=== PATIENT | male | born 1940 | race Caucasian/White ===

== ENCOUNTER 2022-08-17 22:22 | Inpatient (IN) | payer OTHER, BC ==
[2022-08-17] MEDS ORDERED: SODIUM CHLORIDE 1,000 ML IV ONE (22:37)
[2022-08-17 22:47] VITALS: BMI 34.3
[2022-08-17 23:24] LABS: HEMATOCRIT 42.2 % (35.4-49); MCH 22.5 pg (25.7-33.7); MCHC 33.2 g/dl (32.0-35.9); MEAN CELL VOLUME 67.9 fl (80-96); PLATELET COUNT 151.8 10^3/uL (134-434); RBC 6.22 10^6/uL (4.00-5.60); RDW 18.2 % (11.9-15.9); WHITE BLOOD COUNT 15.6 10^3/uL (4.0-10.8)
[2022-08-17 23:28] LABS: INR 1.26 (0.83-1.09); PROTHROMBIN TIME (PATIENT) 14.5 SEC (9.7-13.0)
[2022-08-17 23:35] LABS: ALBUMIN 3.5 g/dl (3.4-5.0); BILIRUBIN,TOTAL 5.9 mg/dl (0.2-1); CREATININE 1.2 mg/dl (0.55-1.3); TOT PROT 6.2 g/dl (6.4-8.2)
[2022-08-17] MEDS ORDERED: ACETAMINOPHEN 1000 MG/100 ML BAG IVPB ONE (23:38)
[2022-08-17] MEDS ORDERED: ACETAMINOPHEN INJECTION 100 ML IVPB ONE (23:46)
[2022-08-17 23:50] LABS: ANISOCYTOSIS 1+; PLATELET ESTIMATE ADEQUATE
[2022-08-18 00:32] LABS: VENOUS O2 SATURATION 94.6 % (70-80); VENOUS PCO2 30.9 mmHg (38-52); VENOUS PH 7.448 (7.310-7.410)
[2022-08-18] MEDS ORDERED: PIPERACILLIN/TAZOB 4.5 GM 4.5 GM in DEXTROSE 5%-WATER 100 ML IVPB ONE (01:34)
[2022-08-18] MEDS ORDERED: PIPERACILLIN/TAZOBACTAM 4.5 GM VIAL IVPB ONE (01:43)
[2022-08-18] MEDS ORDERED: DEXTROSE 5%-NORMAL SALINE 1,000 ML IV SCH ×2 (04:45→08:43)
[2022-08-18] MEDS ORDERED: ACETAMINOPHEN 1000 MG/100 ML BAG IVPB ONE (05:56)
[2022-08-18] MEDS ORDERED: PHYTONADIONE 10 MG/1 ML AMP IVPB ONE (07:58)
[2022-08-18 08:31] LABS: BASO % 0.2 % (0-2.0); HEMATOCRIT 38.6 % (35.4-49); HEMOGLOBIN 11.7 GM/dL (11.7-16.9); LYMPH % 6.4 % (8-40); MCH 20.6 pg (25.7-33.7); MCHC 30.3 g/dl (32.0-35.9); MEAN PLT VOLUME 9.3 fl (7.5-11.1); MONO % 3.6 % (3.8-10.2); NEUT % 89.8 % (42.8-82.8); PLATELET COUNT 145 10^3/uL (134-434); RBC 5.69 M/mm3 (4.00-5.60); RDW 16.1 % (11.9-15.9)
[2022-08-18 08:48] LABS: ALBUMIN 2.7 g/dl (3.4-5.0); BLOOD UREA NITROGEN 23.8 mg/dL (7-18); MAGNESIUM 1.3 mg/dL (1.8-2.4)
[2022-08-18 08:51] LABS: CREATININE 1.5 mg/dL (0.55-1.3); PHOSPHOROUS 3.5 mg/dL (2.5-4.9)
[2022-08-18 08:53] LABS: BILIRUBIN,TOTAL 4.6 mg/dL (0.2-1); TOT PROT 5.1 g/dl (6.4-8.2)
[2022-08-18 10:02] LABS: ANISOCYTOSIS 1+; MACROCYTOSIS 0; OVALOCYTE 1+
[2022-08-18] MEDS: PIPERACILLIN/TAZOB 3.375 GM 3.375 GM in DEXTROSE 5%-WATER - 50 ML IVPB SCH ×3 (10:20→20:33)
[2022-08-18] MEDS: INSULIN SLIDING SCALE (NOVOLOG) 1 VIAL SQ SCH ×3 (11:45→21:31)
[2022-08-18 13:20] LABS: CHLORIDE 108 mmol/L (98-107); SODIUM 139 mmol/L (136-145)
[2022-08-18 13:25] LABS: CALCIUM 8.2 mg/dL (8.5-10.1); MAGNESIUM 1.5 mg/dL (1.8-2.4)
[2022-08-18 13:27] LABS: ALBUMIN 2.6 g/dl (3.4-5.0); ANION GAP 10 MMOL/L (8-16); BLOOD UREA NITROGEN 24.2 mg/dL (7-18); CO2 21 mmol/L (21-32); GLUCOSE,RANDOM 216 mg/dL (74-106); LIPASE 116 U/L (73-393)
[2022-08-18 13:29] LABS: CREATININE 1.5 mg/dL (0.55-1.3); PHOSPHOROUS 2.6 mg/dL (2.5-4.9); SGOT/AST 54 U/L (15-37); SGPT/ALT 100 U/L (13-61); TOT PROT 5.5 g/dl (6.4-8.2)
[2022-08-18 13:31] LABS: BILIRUBIN,TOTAL 3.9 mg/dL (0.2-1)
[2022-08-18 13:33] LABS: ALK PHOS 87 U/L (45-117)
[2022-08-18] MEDS ORDERED: IOHEXOL 300 MG/ML INFUS..BTL IV ONE ×2 (14:09)
[2022-08-18] MEDS: DEXTROSE 5%-LACTATED RINGERS 1,000 ML IV SCH (16:07)
[2022-08-18] MEDS: URSODIOL 300 MG CAPSULE PO SCH (21:31)
[2022-08-19] MEDS: PIPERACILLIN/TAZOB 3.375 GM 3.375 GM in DEXTROSE 5%-WATER - 50 ML IVPB SCH ×6 (01:06→18:53)
[2022-08-19] MEDS: INSULIN SLIDING SCALE (NOVOLOG) 1 VIAL SQ SCH ×4 (06:19→22:16)
[2022-08-19] MEDS: DEXTROSE 5%-LACTATED RINGERS 1,000 ML IV SCH ×2 (06:34→18:53)
[2022-08-19] MEDS: URSODIOL 300 MG CAPSULE PO SCH ×2 (09:11→22:10)
[2022-08-19 10:30] LABS: BASO % 0.1 % (0-2.0); HEMATOCRIT 36.1 % (35.4-49); HEMOGLOBIN 11.3 GM/dL (11.7-16.9); LYMPH % 8.3 % (8-40); MCH 21.2 pg (25.7-33.7); MCHC 31.4 g/dl (32.0-35.9); MEAN CELL VOLUME 67.5 fl (80-96); MONO % 4.6 % (3.8-10.2); PLATELET COUNT 137 10^3/uL (134-434); RBC 5.34 M/mm3 (4.00-5.60); RDW 16.5 % (11.9-15.9); WHITE BLOOD COUNT 9.1 K/mm3 (4.0-10.0)
[2022-08-19 10:39] LABS: INR 1.1 (0.83-1.09); PROTHROMBIN TIME (PATIENT) 12.7 SEC (9.7-13.0)
[2022-08-19 10:55] LABS: ALBUMIN 2.7 g/dl (3.4-5.0); CALCIUM 8.7 mg/dL (8.5-10.1)
[2022-08-19 10:56] LABS: ALBUMIN 2.7 g/dl (3.4-5.0); BLOOD UREA NITROGEN 20.4 mg/dL (7-18)
[2022-08-19 10:59] LABS: CREATININE 1.2 mg/dL (0.55-1.3)
[2022-08-19 11:00] LABS: BILIRUBIN,TOTAL 3.5 mg/dL (0.2-1); TOT PROT 5.3 g/dl (6.4-8.2)
[2022-08-19 11:01] LABS: BILIRUBIN,TOTAL 3.5 mg/dL (0.2-1); TOT PROT 5.3 g/dl (6.4-8.2)
[2022-08-20] MEDS: PIPERACILLIN/TAZOB 3.375 GM 3.375 GM in DEXTROSE 5%-WATER - 50 ML IVPB SCH ×3 (02:18→17:12)
[2022-08-20] MEDS ORDERED: METOPROLOL TARTRATE 5 MG/5 ML VIAL IVPUSH ONE (02:50)
[2022-08-20] MEDS ORDERED: MAGNESIUM 1GM/D5W 100ML - 100 ML IVPB IVPB ONE (04:30)
[2022-08-20] MEDS: INSULIN SLIDING SCALE (NOVOLOG) 1 VIAL SQ SCH ×4 (06:14→21:40)
[2022-08-20 08:38] LABS: BASO % 0.2 % (0-2.0); EOS % 0.5 % (0-4.5); HEMATOCRIT 35.7 % (35.4-49); HEMOGLOBIN 11.3 GM/dL (11.7-16.9); LYMPH % 13.2 % (8-40); MCH 21.3 pg (25.7-33.7); MCHC 31.5 g/dl (32.0-35.9); MEAN CELL VOLUME 67.5 fl (80-96); MEAN PLT VOLUME 8.6 fl (7.5-11.1); MONO % 7.7 % (3.8-10.2); NEUT % 78.4 % (42.8-82.8); PLATELET COUNT 141 10^3/uL (134-434); RDW 16.5 % (11.9-15.9)
[2022-08-20 09:01] LABS: ALBUMIN 2.4 g/dl (3.4-5.0); BLOOD UREA NITROGEN 13.9 mg/dL (7-18); CALCIUM 8.3 mg/dL (8.5-10.1); MAGNESIUM 2.3 mg/dL (1.8-2.4)
[2022-08-20 09:04] LABS: BILIRUBIN,DIRECT 3.3 mg/dL (0.0-0.2); CREATININE 0.9 mg/dL (0.55-1.3)
[2022-08-20 09:05] LABS: BILIRUBIN,TOTAL 3.8 mg/dL (0.2-1)
[2022-08-20] MEDS: APIXABAN 5 MG TABLET PO SCH ×2 (09:44→21:33)
[2022-08-20] MEDS: URSODIOL 300 MG CAPSULE PO SCH ×2 (09:44→21:33)
[2022-08-20] MEDS: DEXTROSE 5%-LACTATED RINGERS 1,000 ML IV SCH (17:12)
[2022-08-21] MEDS: PIPERACILLIN/TAZOB 3.375 GM 3.375 GM in DEXTROSE 5%-WATER - 50 ML IVPB SCH ×2 (01:51→09:52)
[2022-08-21] MEDS: INSULIN SLIDING SCALE (NOVOLOG) 1 VIAL SQ SCH ×4 (06:09→21:48)
[2022-08-21] MEDS: APIXABAN 5 MG TABLET PO SCH ×2 (09:52→21:48)
[2022-08-21] MEDS: URSODIOL 300 MG CAPSULE PO SCH ×2 (09:53→21:48)
[2022-08-21 12:34] LABS: HEMATOCRIT 38.1 % (35.4-49); HEMOGLOBIN 12.1 GM/dL (11.7-16.9); MCH 21.3 pg (25.7-33.7); MCHC 31.8 g/dl (32.0-35.9); MEAN PLT VOLUME 8.6 fl (7.5-11.1); PLATELET COUNT 156 10^3/uL (134-434); RBC 5.68 M/mm3 (4.00-5.60); RDW 16.4 % (11.9-15.9); WHITE BLOOD COUNT 7.4 K/mm3 (4.0-10.0)
[2022-08-21 13:01] LABS: ANISOCYTOSIS 2+; MACROCYTOSIS 0
[2022-08-21 13:07] LABS: ALBUMIN 2.5 g/dl (3.4-5.0); BLOOD UREA NITROGEN 12.9 mg/dL (7-18); CALCIUM 8.7 mg/dL (8.5-10.1)
[2022-08-21 13:10] LABS: BILIRUBIN,DIRECT 3.9 mg/dL (0.0-0.2); CREATININE 0.9 mg/dL (0.55-1.3)
[2022-08-21 13:12] LABS: BILIRUBIN,TOTAL 4.4 mg/dL (0.2-1); TOT PROT 5.2 g/dl (6.4-8.2)
[2022-08-21] MEDS: DEXTROSE 5%-LACTATED RINGERS 1,000 ML IV SCH (17:08)
[2022-08-21] MEDS: CEFAZOLIN 1 GM in DEXTROSE 5%-WATER - 50 ML IVPB SCH (17:22)
[2022-08-22] MEDS: CEFAZOLIN 1 GM in DEXTROSE 5%-WATER - 50 ML IVPB SCH ×3 (01:19→17:19)
[2022-08-22] MEDS ORDERED: METOPROLOL TARTRATE 5 MG/5 ML VIAL IVPUSH ONE (02:27)
[2022-08-22] MEDS: DEXTROSE 5%-LACTATED RINGERS 1,000 ML IV SCH ×2 (05:45→16:19)
[2022-08-22] MEDS: INSULIN SLIDING SCALE (NOVOLOG) 1 VIAL SQ SCH ×4 (06:09→21:43)
[2022-08-22 08:16] LABS: HEMATOCRIT 39.3 % (35.4-49); HEMOGLOBIN 11.8 GM/dL (11.7-16.9); MCH 20.4 pg (25.7-33.7); MCHC 30.1 g/dl (32.0-35.9); MEAN CELL VOLUME 67.9 fl (80-96); MEAN PLT VOLUME 8.8 fl (7.5-11.1); PLATELET COUNT 167 10^3/uL (134-434); RBC 5.79 M/mm3 (4.00-5.60); RDW 16.3 % (11.9-15.9); WHITE BLOOD COUNT 8.1 K/mm3 (4.0-10.0)
[2022-08-22 08:30] LABS: CALCIUM 8.8 mg/dL (8.5-10.1)
[2022-08-22 08:31] LABS: ALBUMIN 2.2 g/dl (3.4-5.0); BLOOD UREA NITROGEN 11.4 mg/dL (7-18); MAGNESIUM 1.9 mg/dL (1.8-2.4)
[2022-08-22 08:34] LABS: CREATININE 0.9 mg/dL (0.55-1.3); PHOSPHOROUS 1.5 mg/dL (2.5-4.9)
[2022-08-22 08:35] LABS: BILIRUBIN,TOTAL 3.1 mg/dL (0.2-1); TOT PROT 4.8 g/dl (6.4-8.2)
[2022-08-22] MEDS: APIXABAN 5 MG TABLET PO SCH ×2 (10:20→21:38)
[2022-08-22] MEDS: URSODIOL 300 MG CAPSULE PO SCH ×2 (10:20→21:38)
[2022-08-22] MEDS ORDERED: BENZOCAINE/MENTH/CETYLPYRD CL 1 EACH LOZENGE MM PRN (10:36)
[2022-08-22] MEDS: METOPROLOL TARTRATE 25 MG TABLET (FP) PO SCH ×2 (10:50→21:37)
[2022-08-22] MEDS: FOLIC ACID 1 MG TABLET (FP) PO SCH (10:50)
[2022-08-22] MEDS: ENALAPRIL MALEATE 5 MG TABLET PO SCH (10:51)
[2022-08-22] MEDS ORDERED: CHLORHEXIDINE GLUCONATE 0.12% 15ML CUP MM ONE (11:00)
[2022-08-22] MEDS ORDERED: DONEPEZIL HCL 10 MG TABLET (FP) PO SCH (22:00)
[2022-08-22] MEDS ORDERED: SENNOSIDES 8.6MG TABLET (FP) PO ONE (22:00)
[2022-08-23] MEDS: CEFAZOLIN 1 GM in DEXTROSE 5%-WATER - 50 ML IVPB SCH ×2 (01:40→10:17)
[2022-08-23] MEDS ORDERED: POLYETHYLENE GLYCOL (HEALTHYLAX) 3350 17 GM PACKET PO SCH ×2 (10:00→15:15)
[2022-08-23] MEDS: URSODIOL 300 MG CAPSULE PO SCH (10:16)
[2022-08-23] MEDS: APIXABAN 5 MG TABLET PO SCH (10:17)
[2022-08-23] MEDS: FOLIC ACID 1 MG TABLET (FP) PO SCH (10:17)
[2022-08-23] MEDS: ENALAPRIL MALEATE 5 MG TABLET PO SCH (10:17)
[2022-08-23] MEDS: METOPROLOL TARTRATE 25 MG TABLET (FP) PO SCH (10:17)
[2022-08-23] MEDS: INSULIN SLIDING SCALE (NOVOLOG) 1 VIAL SQ SCH (11:45)
[2022-08-23 12:29] VITALS: RESP 18
[2022-08-23 14:48] VITALS: BP 141/65; PULSE 55; TEMP 97.4
[2022-08-23] MEDS ORDERED: DOCUSATE NA 100 MG/10 ML UNIT-DOSE CUPS PO PRN (15:13)
[2022-08-23] MEDS ORDERED: SENNOSIDES 8.6MG TABLET (FP) PO SCH (22:00)
== END 2022-08-23 15:00 | disposition short-term general hospital (02) | DRG 445 ==
LOC: FER 22:22 → FM/S 08-18 01:23 → J4S 08-18 05:12
PROVIDERS: ADMIT Internal Medicine; ATTEND Internal Medicine
PROC: BF13YZZ Fluoroscopy of Gallbladder and Bile Ducts using Other Contrast (ICD-10-PCS; 2022-08-18)
PROC: 0F798DZ Dilation of Common Bile Duct with Intraluminal Device, Via Natural or Artificial Opening Endoscopic (ICD-10-PCS; 2022-08-18)
PROC: 0FC98ZZ Extirpation of Matter from Common Bile Duct, Via Natural or Artificial Opening Endoscopic (ICD-10-PCS; principal; 2022-08-18 12:00)
DX: K80.31 Calculus of bile duct with cholangitis, unspecified, with obstruction (principal); E87.1 Hypo-osmolality and hyponatremia; R17 Unspecified jaundice; I13.0 Hypertensive heart and chronic kidney disease with heart failure and stage 1 through stage 4 chronic kidney disease, or unspecified chronic kidney disease; F03.90 Unspecified dementia, unspecified severity, without behavioral disturbance, psychotic disturbance, mood disturbance, and anxiety; N18.9 Chronic kidney disease, unspecified; D64.9 Anemia, unspecified; I48.91 Unspecified atrial fibrillation; I10 Essential (primary) hypertension; R74.01 Elevation of levels of liver transaminase levels; E66.9 Obesity, unspecified; Z68.34 Body mass index [BMI] 34.0-34.9, adult; K21.9 Gastro-esophageal reflux disease without esophagitis
CPT/HCPCS: 0241U-QW; 36415; 71045-TC-FY; 74177-TC; 74330-TC; 80053; 80076; 81003; 81015; 82150; 82248; 82550; 82803; 82962; 83036; 83605; 83690; 83735; 84100; 84439; 84443; 84484; 85025; 85027; 85610; 85730; 86140; 86301; 87040; 87086; 87186; 93005; 93010; 93306-TC; 97161-GP; 99285-25; C9803-CS; Q9967; U0003; U0005